=== PATIENT | male | born 1975 | race Caucasian/White ===

== ENCOUNTER → 2022-09-01 | Outpatient (CLI) | payer OTHER ==
--- NOTE | 2022-09-01 10:14 | CT ---
EXAMINATION TYPE: CT cervical spine wo con CT DLP: 382 mGycm, Automated exposure control for dose reduction was used. DATE OF EXAM: 09/01/2022 9:58 AM COMPARISON: None. CLINICAL INDICATION:Male, 47 years old with history of G95.20 UNSPECIFIED CORD COMPRESSI; PHH, PRE OP TECHNIQUE: Axial CT images from the skull base to the inferior aspect of T2 we obtained without intra venous contrast. Coronal and sagittal reformatted images were also reviewed. FINDINGS: Fracture: None. Osseous structures: Mild disc space narrowing with endplate sclerosis and vacuum disc disease with an terior and posterior osteophytosis involving C5-C6. Vertebral alignment: Within normal limits. Spinal canal/Neural Foramina: Disc osteophyte complexes at C4-C5 causing moderate stenosis and C5-C6 with at least mild spinal canal stenosis. Uncovertebral joint hypertrophy at C4-C5 and C5-C6 causing moderate bilateral neural foraminal stenosis Neck soft tissues: Prevertebral soft tissues are within normal limits. Other: The airway is patent. The lung apices are clear. Small mucous retention cyst within the left s phenoid sinus. IMPRESSION: 1. No evidence of cervical spine fracture. 2. Multilevel degenerative disc disease. This is most pronounced at C4-C5 and C5-C6 with moderate cole tral canal stenosis at C4-C5 and mild central canal stenosis at C5-C6 due to posterior disc osteophyt e complexes. There is moderate bilateral neural foraminal stenosis at these levels.
== END | disposition home or self-care (01) ==
LOC: RADCTMAIN 09:30
PROVIDERS: ATTEND Neurological Surgery
DX: M50.321 Other cervical disc degeneration at C4-C5 level (principal); M99.71 Connective tissue and disc stenosis of intervertebral foramina of cervical region; M25.78 Osteophyte, vertebrae; G95.20 Unspecified cord compression
CPT/HCPCS: 72125

== ENCOUNTER → 2022-10-15 | Outpatient (CLI) | payer OTHER ==
--- NOTE | 2022-10-15 18:11 | XR ---
EXAMINATION TYPE: XR cervical spine 3 views limited DATE OF EXAM: 10/15/2022 Comparison: None Clinical History: 47-year-old male Z98.1 Arthrodesis status Findings: There is some residual mild prevertebral soft tissue swelling along the levels of C3-C6 ACDF. Alignme nt is maintained. Mild degenerative disc disease suggested at C7-T1. Normal odontoid view. Impression: Uncomplicated appearance to the C3-C6 ACDF.
== END | disposition home or self-care (01) ==
LOC: RADXRMAIN 11:39
PROVIDERS: ATTEND Physician Assistant
DX: Z98.1 Arthrodesis status (principal)
CPT/HCPCS: 72040

== ENCOUNTER → 2023-01-02 | Outpatient (CLI) | payer OTHER ==
--- NOTE | 2023-01-02 13:02 | XR ---
EXAMINATION TYPE: XR cervical spine w flex/ext DATE OF EXAM: 01/02/2023 COMPARISON: NONE HISTORY: Z98.1 TECHNIQUE: 7 views of the cervical spine are submitted. Flexion and extension views are also obtained . FINDINGS: Again noted are changes of anterior cervical discectomy and fusion extending from C4 throug h C6. Anterior fixation plate is unchanged in position. C5 intervertebral body stabilizer is noted to be in place. Posterior pubic hardware noted as well. Alignment is stable at neutral, flexion and ext ension. There is widening and narrowing of the anterior C6-7 disc space at flexion and extension. IMPRESSION: 1. Stable postoperative alignment changes of ACDF extending from C4 through C6. 2.There is widening and narrowing of the anterior C6-7 disc space at flexion and extension.
== END | disposition home or self-care (01) ==
LOC: RADXRMAIN 11:34
PROVIDERS: ATTEND Physician Assistant
DX: M50.323 Other cervical disc degeneration at C6-C7 level (principal); Z98.1 Arthrodesis status
CPT/HCPCS: 72052